=== PATIENT | female | born 1965 | race Caucasian/White ===

== ENCOUNTER 2018-05-12 16:05 | Outpatient (REF) | payer BC, SELFPAY ==
[2018-05-12 18:43] LABS: Abs Immature Grans 0.01 k/cumm (0.0-0.09); Absolute Basophil Count 0.03 k/cumm (0.0-0.2); Absolute Lymphocyte Count 2.15 k/cumm (1.2-3.4); Absolute Monocyte Count 0.51 k/cumm (0.11-0.7); Absolute Neutrophil Count 4.99 k/cumm (1.2-6.7); Basophils % 0.4; Eosinophils % 2.5; HCT 40.2 % (36.0-46.0); HGB 13.2 g/dL (12.0-15.5); Immature Grans % 0.1; Lymphocytes % 27.2; Mean Corp. HGB Concentration 32.8 g/dL (32.0-36.0); Mean Corpuscular Hemoglobin 29.9 pg (27.0-33.0); Mean Platelet Volume 10.1 fL (8.0-11.0); Monocytes % 6.5; Neutrophils % 63.3; Platelet Count 283 x1000/uL (130-400); RBC 4.42 m/cumm (4.00-5.20); RBC Distribution Width 13.5 % (11.7-14.6); White Blood Cell Count 7.89 k/cumm (4.4-10.8)
[2018-05-12 19:03] LABS: Anion Gap 12.5 mmol/L (3-11); BUN 15 mg/dL (7-18); CO2 26.5 mmol/L (21.0-32.0); CREATININE 1.11 mg/dL (0.55-1.02); Calcium 9.3 mg/dL (8.5-10.1); Chloride 101 mmol/L (98-107); Estimated GFR 51.22 (mL/min/1.73m2); Glucose 94 mg/dL (70-100); Potassium 4.1 mmol/L (3.5-5.1); Sodium 140 mmol/L (136-145); TSH 3.42 uIU/mL (0.358-3.74)
== END 2018-05-12 16:06 ==
LOC: NCHCN 16:05
PROVIDERS: PCP Nurse Practitioner Family; Visit Provider Nurse Practitioner Family
DX: F41.0 Panic disorder [episodic paroxysmal anxiety] (principal)
CPT/HCPCS: 80048; 84443; 85025

== ENCOUNTER 2018-12-22 00:26 | Outpatient (CLI) | payer BC, SELFPAY ==
[2018-12-22 08:41] LABS: CREATININE 0.88 mg/dL (0.55-1.02)
--- NOTE | 2018-12-22 09:43 | DI.CT_ITS ---
SYMPTOMS/DIAGNOSIS: LT LOWER QUAD ABD PAIN, R10.[address]: CT examination of the abdomen and pelvis was performed with a bolus infusion of 100 cc's of Omnipaque 350 and ingestion of dilute barium. Images obtained through the lung bases are unremarkable. Note is made of paraesophageal hiatal hernia. The liver and spleen are unremarkable in appearance. The gallbladder has been surgically removed. No biliary dilatation seen. The pancreas is unremarkable in appearance. The abdominal aorta is of normal diameter. No major vascular abnormality is seen. The adrenals and kidneys appear normal. No evidence of urinary tract obstruction or calcification. There is an apparent previous sigmoid anastomosis. No evidence of obstruction. The appendix appears normal. No evidence of diverticulitis. No abdominal or pelvic adenopathy seen. Small fat containing umbilical hernia noted. No other significant abdominal wall hernia seen. CONCLUSION: No evidence of acute intra-abdominal process.
[2018-12-22] MEDS: Omnipaque 350 MG/ML 100 ML BTL IJ (09:44)
[2018-12-22] MEDS: Normal Saline Flush 10 ML SYR IVP (09:45)
[2018-12-22] MEDS: Breeza Beverage 473 ML BTL PO (09:51)
== END 2018-12-22 00:46 ==
PROVIDERS: PCP Nurse Practitioner Family; Visit Provider Nurse Practitioner Family
DX: R10.32 Left lower quadrant pain (principal); K44.9 Diaphragmatic hernia without obstruction or gangrene; Z13.9 Encounter for screening, unspecified
CPT/HCPCS: 36415; 74177; 82565; J3490

== ENCOUNTER 2018-12-29 12:00 | Outpatient (CLI) | payer BC, SELFPAY ==
--- NOTE | 2018-12-29 10:10 | DI.RAD_ITS ---
SYMPTOMS/DIAGNOSIS: WHEEZING, R06.2, SOB, ? PNEUMONIA PA AND LATERAL CHEST: The heart is normal in size. The lungs are clear. The mediastinal structures and pleura appear intact. CONCLUSION: Normal chest. No evidence of acute cardiopulmonary disease.
== END 2018-12-29 12:20 ==
PROVIDERS: PCP Nurse Practitioner Family; Visit Provider Nurse Practitioner Family
DX: R06.2 Wheezing (principal); R06.02 Shortness of breath
CPT/HCPCS: 71046

== ENCOUNTER 2019-07-09 09:22 | Outpatient (REF) | payer BC, SELFPAY ==
[2019-07-09 12:16] LABS: Abs Immature Grans 0.01 k/cumm (0.0-0.09); Absolute Basophil Count 0.04 k/cumm (0.0-0.2); Absolute Eosinophil Count 0.16 k/cumm (0.0-0.7); Absolute Lymphocyte Count 1.94 k/cumm (1.2-3.4); Absolute Monocyte Count 0.41 k/cumm (0.11-0.7); Absolute Neutrophil Count 3.85 k/cumm (1.2-6.7); Basophils % 0.6; Eosinophils % 2.5; HCT 40.5 % (36.0-46.0); HGB 13.3 g/dL (12.0-15.5); Immature Grans % 0.2; Lymphocytes % 30.3; Mean Corp. HGB Concentration 32.8 g/dL (32.0-36.0); Mean Corpuscular Hemoglobin 29.7 pg (27.0-33.0); Mean Corpuscular Volume 90.4 fL (80-95); Monocytes % 6.4; Platelet Count 321 x1000/uL (130-400); RBC 4.48 m/cumm (4.00-5.20); RBC Distribution Width 13.3 % (11.7-14.6); White Blood Cell Count 6.41 k/cumm (4.4-10.8)
[2019-07-09 13:00] LABS: ALT 76 U/L (14-59); AST 41 U/L (15-37); Albumin 4.3 g/dL (3.4-5.0); Alkaline Phosphatase 84 U/L (46-116); BUN 13 mg/dL (7-18); Bilirubin, Total 0.4 mg/dL (0.2-1.0); CREATININE 0.81 mg/dL (0.55-1.02); Calcium 9.4 mg/dL (8.5-10.1); Calculated LDL 145 mg/dL; Chloride 101 mmol/L (98-107); Cholesterol 262 mg/dL (50-200); Glucose 103 mg/dL (70-100); HDL Cholesterol 101 mg/dL (40-60); Potassium 4.4 mmol/L (3.5-5.1); Sodium 140 mmol/L (136-145); TSH (W/Ref FT4) 0.84 uIU/mL (0.36-3.74); Total Protein 7.7 g/dL (6.4-8.2); Triglyceride 80 mg/dL (30-150)
[2019-07-10 18:25] LABS: Tissue Transglutaminase Ab IgA <1.2 U/mL; Tissue Transglutaminase Ab IgG 2.7 U/mL
[2019-07-12 11:59] LABS: IgA 158 mg/dL (85-499)
== END 2019-07-09 09:42 ==
LOC: NCHCN 09:22
PROVIDERS: PCP Nurse Practitioner Family; Visit Provider Nurse Practitioner Family
DX: R19.7 Diarrhea, unspecified (principal); Z00.00 Encounter for general adult medical examination without abnormal findings; Z13.220 Encounter for screening for lipoid disorders
CPT/HCPCS: 80053; 80061; 82784; 83516; 84443; 85025

== ENCOUNTER 2019-07-15 09:49 | Outpatient (REF) | payer BC, SELFPAY ==
[2019-07-15 22:22] LABS: Result Negative; Specimen Description Feces
[2019-07-16 12:08] LABS: Campylobacter PCR SEE COMMENTS; Salmonella PCR SEE COMMENTS; Shiga Toxin PCR SEE COMMENTS; Shigella/Enteroinvasive Ecoli SEE COMMENTS
== END 2019-07-15 10:09 ==
LOC: NCHCN 09:49
PROVIDERS: PCP Nurse Practitioner Family; Visit Provider Nurse Practitioner Family
DX: R19.7 Diarrhea, unspecified (principal)
CPT/HCPCS: 87329; 87505; 83630; 87324; 87798

== ENCOUNTER 2019-09-11 14:53 | Outpatient (REF) | payer BC, SELFPAY | END 2019-09-11 15:13 | LOC: LBN 14:53 | PROVIDERS: PCP Nurse Practitioner Family; Visit Provider Nurse Practitioner Family | DX: R19.7 Diarrhea, unspecified (principal) | CPT/HCPCS: 87324 ==

== ENCOUNTER 2020-07-13 18:49 | Outpatient (REF) | payer BC, SELFPAY ==
[2020-07-13 18:27] LABS: Abs Immature Grans 0.03 10^3/uL (0.0-0.06); Absolute Basophil Count 0.05 10^3/uL (0.0-0.2); Absolute Lymphocyte Count 2.37 10^3/uL (1.2-3.4); Absolute Monocyte Count 0.43 10^3/uL (0.1-0.8); Absolute Neutrophil Count 4.01 10^3/uL (1.2-6.7); Basophils % 0.7; Eosinophils % 2.8; HCT 38.6 % (36.0-46.0); HGB 12.7 g/dL (11.2-15.7); Immature Grans % 0.4; Lymphocytes % 33.4; MCH 29.9 pg (27.0-33.0); MCHC 32.9 % (32.0-36.0); MCV 90.8 fL (80-95); Monocytes % 6.1; Neutrophils % 56.6; Nucleated RBC 0 %; Platelet Count 312 10^3/uL (130-400); RBC 4.25 10^6/uL (3.93-5.22); RDW 12.8 % (11.7-14.6); WBC 7.09 10^3/uL (4.4-10.8)
[2020-07-13 18:28] LABS: ALT 53 U/L (14-59); AST 31 U/L (15-37); Albumin 4.4 g/dL (3.4-5.0); Alkaline Phosphatase 84 U/L (46-116); Anion Gap 10.1 mmol/L (3-11); BUN 9 mg/dL (7-18); Bilirubin, Total 0.4 mg/dL (0.2-1.0); CO2 28.9 mmol/L (21.0-32.0); Calcium 9.2 mg/dL (8.5-10.1); Calculated LDL 189 mg/dL (<100); Chloride 103 mmol/L (98-107); Cholesterol 307 mg/dL (<200); Glucose 81 mg/dL (74-106); HDL Cholesterol 100 mg/dL (40-60); Potassium 4.3 mmol/L (3.5-5.1); Sodium 142 mmol/L (136-145); Total Protein 7.4 g/dL (6.4-8.2); Triglyceride 91 mg/dL (<150)
[2020-07-13 18:30] LABS: Troponin I < 0.05 ng/mL (<0.06)
== END 2020-07-13 19:09 ==
LOC: NCHCN 18:49
PROVIDERS: PCP Nurse Practitioner Family; Visit Provider Nurse Practitioner Family
DX: R07.89 Other chest pain (principal); R73.03 Prediabetes
CPT/HCPCS: 80053; 80061; 84484; 85025; 86140

== ENCOUNTER 2020-08-08 08:26 | Outpatient (CLI) | payer BC, SELFPAY | END 2020-08-08 08:46 | PROVIDERS: PCP Nurse Practitioner Family; Visit Provider Nurse Practitioner Family | DX: I35.0 Nonrheumatic aortic (valve) stenosis (principal); I49.1 Atrial premature depolarization; I49.3 Ventricular premature depolarization | CPT/HCPCS: 93225 ==

== ENCOUNTER 2020-08-10 15:39 | Outpatient (CLI) | payer BC, SELFPAY ==
--- NOTE | 2020-08-15 08:42 | W.HOLTRPT ---
Date of service: 08/15/20 Time of Service: 08:42 Holter Monitor Report Referring Provider:: Jimmy Hernandez Indications:: Aortic stenosis Holter Monitor Note: This is a 48-year Holter monitor Rhythm was sinus with an average heart rate of 77. Minimum heart rate was 59 and maximum 109 Atrial premature beat was seen. There were 15 isolated ventricular ectopic beats There is no atrial fibrillation, pauses greater than 3 seconds or high-grade AV block Patient symptoms corresponded to sinus rhythm without dysrhythmia
== END 2020-08-10 15:59 ==
PROVIDERS: PCP Nurse Practitioner Family; Visit Provider Nurse Practitioner Family
DX: I35.0 Nonrheumatic aortic (valve) stenosis (principal); I49.1 Atrial premature depolarization; I49.3 Ventricular premature depolarization
CPT/HCPCS: 93226

== ENCOUNTER 2020-08-29 00:45 | Outpatient (CLI) | payer BC, SELFPAY ==
--- NOTE | 2020-08-29 10:30 | DI.US_ITS ---
APPROVED REPORT EXAM: Comprehensive 2D, Doppler, and color-flow Echocardiogram Patient Location: Out-Patient Otr Driver: Edwina Duval RDCS (AE) Indications: Chest pain Other Information Study Quality: Adequate Conclusion Normal left ventricular wall thickness and chamber size. Estimated ejection fraction is 65%. There are no segmental wall motion abnormalities Normal right ventricular size and systolic function Both atria are normal in size The aortic valve is sclerotic and trileaflet with trace regurgitation. No aortic stenosis. The tricuspid, mitral, and pulmonic valves are structurally normal There is trace tricuspid, mitral, and pulmonic regurgitation. Right ventricular systolic pressure co uld not be estimated Wall motion Left Ventricle The left ventricle is normal size. The left ventricular systolic function is normal. The left ventric ular ejection fraction is within the normal range. There is normal left ventricular wall thickness. T here is normal LV segmental wall motion. There is no ventricular septal defect visualized. LVEF is 65 %. Right Ventricle The right ventricle is normal size. The right ventricular systolic function is normal. Atria The left atrium size is normal. The right atrium size is normal. The interatrial septum is intact wit h no evidence for an atrial septal defect. Aortic Valve The Aortic valve is sclerotic. Aortic valve is trileaflet. There is no aortic valvular stenosis. Trac e aortic regurgitation. Mitral Valve The mitral valve is normal in structure. No evidence of mitral valve stenosis. Trace mitral regurgita tion. Tricuspid Valve The tricuspid valve is normal in structure. There is no tricuspid valve stenosis. Trace tricuspid reg urgitation. Pulmonic Valve The pulmonary valve is normal in structure. There is no pulmonic valvular stenosis. Trace pulmonic re gurgitation. Great Vessels The aortic root is normal in size. The ascending aorta is normal in size. Aortic arch is normal in ca liber. IVC is normal in size and collapses >50% with inspiration. Pericardium There is no pericardial effusion. 2D Dimensions IVSD d PLAX 0.89 cm F: 0.6-1.0 LV Vol A2C d MOD 61.8 mL LVPW d PLAX 0.95 cm F: 0.6 - 1.0 LV Vol A4C d MOD 57.7 mL LVID d PLAX 3.88 cm F: 3.8 - 5.2 LA vol/ BSA A2C s A-L 26.0 mL/m2 LVDs 2.70 cm F: 2.2 - 3.5 LA vol/ BSA A4C s A-L 19.6 mL/m2 Ao Root d 2.90 cm F: 2.7 - 3.3 LA Vol/ BSA Biplane s A-L 23.5 mL/m2 RA Area A4C 8.60 cm2 LA Area A4C s MOD 14.34 cm2 RA Vol/ BSA A4C s A-L 9.6 mL/m2 LA Area A2C s MOD 17.23 cm2 Ao Asc Diam d 3.10 cm F: 2.3 - 3.1 LV EF A4C MOD 57.9 % LV EF Teichholz 57.8 % LV EF A2C MOD 60.4 % LVEF (Nguyen's) 59.24 % F: 54 - 74 LV EF Biplane MOD 59.2 % LV Volume 48.15 mL F: 46 - 106 SV 35.70 mL LV Volume Index 28.83 mL/m2 F: 29 - 61 SV Index 21.34 mL/m2 LV Vol Biplane MOD 60.3 mL FS 29.90 % M-Mode TAPSE 2.55 cm (M/F) >1.7 LV Diastology MV E' medial 0.106 (>0.07 m/s) E/A Ratio 0.7 LV E/e MED 8.70 (<14) MV E Vmax 0.92 (0.4-1.3 m/s) MV E' lateral 0.075 (>0.1 m/s) MV A Vmax 1.25 (0.4-1.3 m/s) LV E/e LAT 12.30 (<14) MV E/A Ratio 0.72 MV E/E' medial 8.71 MV E/E' lateral 12.30 Aortic Valve LVOT Area 2.73 cm2 AoV Area Vmax 2.21 cm2 LVOT Vmax 1.39 m/s AoV Area/ BSA (Vmax) 1.32 cm2/m2 LVOT Mean Abiel. 0.91 m/s MYNOR Mean Abiel. 2.04 cm2 LVOT Peak Grad 7.7 mmHg MYNOR Mean Abiel. Index 1.22 cm2/m2 LVOT Mean Grad 3.9 mmHg LVOT VTI 0.301 m LVOT Diam s 1.85 cm AoV Vmax 1.71 m/s Velocity Ratio 0.81 AoV Mean Abiel. 1.22 m/s AoV Peak Grad 11.7 mmHg LVOT SV 82.39 mL AoV Mean Grad 6.5 mmHg AoV VTI 0.363 m AoV Area VTI 2.27 cm2 AoV Area/ BSA (VTI) 1.36 cm/m2 Mitral Valve MV DT 203 (160-240 msec) MV PHT 59 msec MV Area PHT 3.74 cm2 Pulmonary Valve PV Vmax 1.29 (0.5-1.5 m/s) RVOT Peak Gr. 2.51 mmHg PV Peak Grad 6.7 mmHg RVOT Mean Gr. 1.20 mmHg PV Mean Grad 4.2 mmHg RVOT VTI 0.116 m PV VTI 0.285 m RVOT Vmax 0.79 m/s
== END 2020-08-29 01:05 ==
PROVIDERS: PCP Nurse Practitioner Family; Visit Provider Nurse Practitioner Family
DX: R07.9 Chest pain, unspecified (principal)
CPT/HCPCS: 93306

== ENCOUNTER 2021-02-18 09:53 | Emergency (ER) | payer BC, SELFPAY ==
--- NOTE | 2021-02-18 10:02 | ED.GENADUL_ITS ---
Discharge Plan Disposition Patient Disposition: HOME Condition: Stable Discharge Details Clinical Impression: Right knee sprain, Effusion of right knee Primary Care Provider: Jayde Eaton ED Provider: Cristy River Home Meds and New Rx's Prescriptions: New naproxen [Naprosyn] 500 mg tablet 500 mg PO BID PRN (Reason: pain) Qty: 14 RF: 0 Continued loperamide 2 MG tablet 2 mg PO PRN RF: 0 omeprazole 20 MG capsule,delayed release(DR/EC) 20 mg PO DAILY RF: 0 budesonide-formoterol [Symbicort] 10.2 GM HFA aerosol inhaler 2 puff Inhalation BID RF: 0 gabapentin 300 MG capsule 300 mg PO HS Qty: 30 RF: 5 fluticasone propionate 16 GM spray,suspension 50 mcg NS DAILY RF: 0 nitroglycerin [Nitrostat] 0.4 mg tablet, sublingual 0.4 mg sublingual Q5-15M PRNRF: 0 hydroxyzine HCl 25 mg tablet 25 mg PO TID PRNRF: 0 buspirone 5 mg tablet 5 mg PO BID RF: 0 amitriptyline 75 MG tablet 75 mg PO HS RF: 0 albuterol sulfate [ProAir HFA] 200 PUFF HFA aerosol inhaler 2 puff IN PRN PRNRF: 0 duloxetine [Cymbalta] 60 MG capsule,delayed release(DR/EC) 60 mg PO HS RF: 0 dicyclomine 10 mg capsule 10 mg PO DAILY RF: 0 Discharge Instructions Instructions: Knee Sprain (ED) Additional Instructions: Rest, ice, and elevate the affected area as much as possible. Your prescription has been sent electronically to your pharmacy. Call the pharmacy to make sure your prescription is ready before pickup. Take the prescription as directed. Follow-up with your primary care doctor in 1 week as needed and for referral to orthopedics if your symptoms do not improve or worsen. Return to the emergency department with any worsening or new concerning symptoms. Stand Alone Forms: Work Release Referrals: Bakari Desir MD [ [facility] STAFF PHYSICIAN] - Discharge Data Discharge Physician: Cristy River Medical Decision Making 55-year-old female presents with right knee pain since yesterday after pulling to carts at the grocery store. Patient appears comfortable and nontoxic. Her right suprapatellar knee appears mild to moderately edematous. There is no evidence of cellulitis or trauma. There is no ligamentous laxity or deformity. She has neurovascular intact. Differential diagnosis includes knee strain, knee effusion, arthritis. X-ray notes arthritis and a joint effusion. Patient was placed in Petey wrap and given crutches. Advised on RICE. Advised to follow-up with orthopedics if symptoms do not improve or worsen. Usual and customary return precautions given prior to discharge. Medical Records Medical records reviewed: Yes I reviewed the patient's medical records. Imaging Data Radiologic Study: Radiologist's impression: XR Right Knee Exam date and time: 02/18/2021 10:21 AM Age: 55 years old Clinical indication: Other: Twisting injury, R/O FX / effusion TECHNIQUE: Imaging protocol: XR Right knee. Views: 4 or more views. COMPARISON: No relevant prior studies available. FINDINGS: Bones/joints: There is no acute fracture or dislocation. There is moderate narrowing of the medial compartment of the tibiofemoral joint. Mild narrowing is noted in the patellofemoral compartment. There are marginal osteophytes and subchondral sclerosis consistent with osteoarthritis. There is mild suprapatellar joint effusion. Soft tissues: Normal. IMPRESSION: 1. No acute fracture or dislocation. 2. Moderate osteoarthritis of the knee. 3. Mild suprapatellar joint effusion. HPI General Mode of arrival: ambulatory . Date/Time Provider Initiated Documentation: 02/18/21 09:55 . Limitations to Documentation: no limitations . Information obtained by: patient . HPI Narrative: Patient is a 55-year-old female presents with right knee pain since yesterday. Patient states she was pulling 2 carts at the grocery store yesterday and developed right knee pain after this but does not recall a specific injury. She states the pain is worse with flexion of her knee and with walking and weightbearing. She took Tylenol last night and this morning with some relief. She denies any fever. Related Data Home Medications Medication Instructions Recorded Confirmed albuterol sulfate [ProAir HFA] 2 puff IN PRN PRN 07/03/17 02/18/21 amitriptyline 75 mg PO HS 07/03/17 02/18/21 duloxetine [Cymbalta] 60 mg PO HS 07/03/17 02/18/21 budesonide-formoterol [Symbicort] 2 puff INHALATION BID inhaler 07/22/17 02/18/21 loperamide 2 mg PO PRN 07/22/17 02/18/21 omeprazole 20 mg PO DAILY tab-cap 07/22/17 02/18/21 gabapentin 300 mg PO HS #30 tab-cap 08/25/17 02/18/21 fluticasone propionate 50 mcg NS DAILY spray 10/06/17 02/18/21 buspirone 5 mg tablet 5 mg PO BID 07/19/20 02/18/21 hydroxyzine HCl 25 mg tablet 25 mg PO TID PRN 07/19/20 02/18/21 nitroglycerin 0.4 mg sublingual 0.4 mg SUBLINGUAL Q5-15M PRN 07/19/20 02/18/21 tablet dicyclomine 10 mg PO DAILY 02/18/21 02/18/21 naproxen [Naprosyn] 500 mg PO BID PRN #14 tab 02/18/21 Previous Rx's Medication Instructions Recorded gabapentin 300 mg PO HS #30 tab-cap 08/25/17 naproxen [Naprosyn] 500 mg PO BID PRN #14 tab 02/18/21 Allergies Allergy/AdvReac Type Severity Reaction Status Date / Time heparin Allergy Unverified 02/18/21 10:11 tramadol Allergy Unverified 02/18/21 10:11 egg AdvReac Unverified 02/18/21 10:11 feathers AdvReac Unverified 02/18/21 10:11 milk AdvReac Unverified 02/18/21 10:11 mold AdvReac Unverified 02/18/21 10:11 pollen extracts AdvReac Unverified 02/18/21 10:11 Review of Systems All systems reviewed & are unremarkable except as noted in HPI and below PFSH Medical History (Updated 02/18/21 @ 11:38 by Cristy River DO) Adjustment disorder Aortic stenosis Chronic diarrhea Depression Esophageal spasm Fatty liver disease, nonalcoholic Fibromyalgia Hypoglycemia Intermittent chest pain Low back pain Mild asthma Mild mitral stenosis AMINA (obstructive sleep apnea) Periodic limb movement disorder Prediabetes Right shoulder pain Seasonal allergies Seizures Surgical History (Updated 07/19/20 @ 09:39 by Arleen Osorio) Hx of breast reduction, elective S/P colectomy Social History Smoking/Tobacco Use Status: Former Tobacco Use Smoking risk assessment performed?: Yes Alcohol Intake: current Alcohol Intake frequency: a few times a week Drug use: Occasionally Substance use type: marijuana Do you feel safe at home: Yes Do you feel safe in your relationship?: Yes Exam Const General: cooperative, healthy appearing and no acute distress HENMT Head: normal to inspection Mouth: oral mucosae normal Eyes General: appearance normal, both eyes and all related structures Neck Neck: normal visual inspection Resp Effort & Inspection: normal respiratory effort and able to speak in complete sentences Cardio Rate: regular rate Skin General skin exam: no rashes or lesions noted Neuro General: patient alert, patient awake and patient oriented x3 Motor: muscle tone normal throughout Extrem Other: Right knee: Anterior knee appears mild to moderately edematous, mostly on suprapatellar and medial aspect. She has pain with valgus stress and flexion. She has no ligamentous instability with no pain with varus stress, negative anterior and posterior drawer test, negative Yvon's test Right DP/PT pulses intact. No evidence of erythema, ecchymosis, crepitus. Psych Appearance: grossly normal Affect: normal affect
[2021-02-18 10:06] VITALS: BP 159/95; PULSE 71; RESP 18; TEMP 36.8; O2SAT 6
--- NOTE | 2021-02-18 10:15 | DI.RAD_ITS ---
Exam(s) XR KNEE RT 4V AP,LAT,ENE,PAT EXAM: XR KNEE RT 4V AP,LAT,ENE,PAT CLINICAL HISTORY: twisting, pulling a cart, r/o fx/effusion TECHNIQUE: COMPARISON: No exams were available for comparison FINDINGS: Four views were obtained. There is a moderate-sized knee joint effusion. The cartilaginous joint sp dwaine of medial tibiofemoral joint and of the lateral aspect of patello femoral joint are narrowed. Th ere are moderate marginal osteophytes involving the joints of the knee. There is no evidence of acute fracture or dislocation. IMPRESSION: Joint effusion without obvious fracture or dislocation. RADIATION DOSE DELIVERED: Total DLP
[2021-02-18] MEDS: Ibuprofen 600 MG TAB PO (10:29)
--- NOTE | 2021-02-18 11:46 | DI.VRAD_ITS ---
Addendum created by Prieto Ingram DO on 02/18/2021 12:06:09 PM EDT: PROCEDURE INFORMATION: Exam: XR Right Knee Exam date and time: 02/18/2021 10:21 AM Clinical indication: Other: Twisting injury, R/O FX / effusion TECHNIQUE: Imaging protocol: XR Right knee. Views: 4 or more views. COMPARISON: No relevant prior studies available. FINDINGS: Bones/joints: The exam is focused on the right knee. Soft tissues: Normal. Other findings: Addendum is made. IMPRESSION: 1. No acute fracture or dislocation. 2. Moderate osteoarthritis of the right knee. 3. Mild suprapatellar joint effusion. Initial report created on 02/18/2021 11:45:36 AM EDT: PROCEDURE INFORMATION: Exam: XR Left Knee Exam date and time: 02/18/2021 10:21 AM Age: 55 years old Clinical indication: Other: Twisting injury, R/O FX / effusion TECHNIQUE: Imaging protocol: XR Left knee. Views: 4 or more views. COMPARISON: No relevant prior studies available. FINDINGS: Bones/joints: There is no acute fracture or dislocation. There is moderate narrowing of the medial compartment of the tibiofemoral joint. Mild narrowing is noted in the patellofemoral compartment. There are marginal osteophytes and subchondral sclerosis consistent with osteoarthritis. There is mild suprapatellar joint effusion. Soft tissues: Normal. IMPRESSION: 1. No acute fracture or dislocation. 2. Moderate osteoarthritis of the knee. 3. Mild suprapatellar joint effusion. Dictated and Authenticated by: Prieto Ingram MD. Ordering:KATALINA Muniz MD
[2021-02-18 12:02] VITALS: BP 161/81; PULSE 71; RESP 20; TEMP 37; O2SAT 99
== END 2021-02-18 12:07 | disposition home or self-care (01) ==
PROVIDERS: Emergency Provider Physician Assistant; PCP Nurse Practitioner Family
DX: S83.8X1A Sprain of other specified parts of right knee, initial encounter (principal); M25.461 Effusion, right knee; X50.9XXA Other and unspecified overexertion or strenuous movements or postures, initial encounter
CPT/HCPCS: 99283; 73564

== ENCOUNTER 2021-09-08 09:39 | Emergency (ER) | payer BC, SELFPAY ==
[2021-09-08] VITALS (26 sets, daily range): BP systolic 110–144; BP diastolic 63–97; PULSE 82–109; RESP 16; TEMP 36.4; O2SAT 69–100
--- NOTE | 2021-09-08 09:59 | ED.GENADUL_ITS ---
Discharge Plan Disposition Patient Disposition: HOME Condition: Improving Discharge Details Clinical Impression: Acute hypokalemia, Hypomagnesemia, Dehydration, Enteritis Primary Care Provider: Jayde Eaton ED Provider: Nixon Bacon Home Meds and New Rx's Prescriptions: Continued loperamide 2 MG tablet 2 mg PO PRN RF: 0 omeprazole 20 MG capsule,delayed release(DR/EC) 20 mg PO DAILY RF: 0 budesonide-formoterol [Symbicort] 10.2 GM HFA aerosol inhaler 2 puff Inhalation BID RF: 0 fluticasone propionate 16 GM spray,suspension 50 mcg NS DAILY RF: 0 nitroglycerin [Nitrostat] 0.4 mg tablet, sublingual 0.4 mg sublingual Q5-15M PRNRF: 0 hydroxyzine HCl 25 mg tablet 25 mg PO TID PRNRF: 0 amitriptyline 75 MG tablet 75 mg PO HS RF: 0 albuterol sulfate [ProAir HFA] 200 PUFF HFA aerosol inhaler 2 puff IN PRN PRNRF: 0 duloxetine [Cymbalta] 60 MG capsule,delayed release(DR/EC) 60 mg PO HS RF: 0 dicyclomine 10 mg capsule 10 mg PO DAILY RF: 0 naproxen [Naprosyn] 500 mg tablet 500 mg PO BID PRN (Reason: pain) Qty: 14 RF: 0 Discharge Instructions Instructions: Dehydration (ED), Hypokalemia (ED), Hypomagnesemia (ED) Additional Instructions: Small, frequent sips of fluids to maintain hydration. Your potassium was slightly low, supplemented in the emergency department as we discussed, and you would benefit from increasing potassium-containing foods in the diet such as bananas, strawberries, tree nuts such as almonds or cashews. Small, frequent to fluids to maintain hydration. Return to the emergency department for any acute concerns. Medical Decision Making 56-year-old female presents from home with her . She reports 9 to 10 days of crampy abdominal pain, plosives 10-15 episodes per day watery diarrhea. She has not had blood in the stool. She was exposed to norovirus at work. Has had malaise and weakness, nausea without vomiting. She rushed to the ER slightly tachycardic, pleasant, with exam that reveals mild abdominal tenderness. 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 There is diagnosis today includes colitis, viral syndrome, dehydration, electrolyte abnormality. Patient IV access established, fluids and antiemetic initiated. Given her complex medical history I do fluid to rule out bowel obstruction or recurrent diverticulitis and patient referred for CT imaging. Labs: Sodium 135, potassium 2.7, chloride 96, by 25, BUN 18, creatinine 1.0, magnesium 1.1, glucose 131, unremarkable LFTs. White blood cell count 12.5, hematocrit 43, platelets 429. Potassium and magnesium supplemented. Patient referred for CT scan which reveals mildly dilated fluid-filled loops of small bowel and colon which may reflect generalized ileus. Patient with significant improvement following fluids and 30 mEq potassium and 2 g magnesium supplementation. She was able to take liquids by mouth HPI General Mode of arrival: ambulatory . Date/Time Provider Initiated Documentation: 09/08/21 09:41 . Limitations to Documentation: no limitations . Information obtained by: patient . History of Present Illness 56 year old F presents to the emergency department with the chief complaint of Diarrhea, weakness, pain, described as moderate, and is localized to the abdomen. Patient started experiencing this day(s) and it has been intermittent. No relieving factors improve symptom(s), No exacerbating factors reported . Patient notes loss of appetite, malaise and weakness; denies chest pain and syncope. Patient did receive the following treatments prior to arrival, none Related Data Home Medications Medication Instructions Recorded Confirmed albuterol sulfate [ProAir HFA] 2 puff IN PRN PRN 07/03/17 09/08/21 amitriptyline 75 mg PO HS 07/03/17 09/08/21 duloxetine [Cymbalta] 60 mg PO HS 07/03/17 09/08/21 budesonide-formoterol [Symbicort] 2 puff INHALATION BID inhaler 07/22/17 09/08/21 loperamide 2 mg PO PRN 07/22/17 09/08/21 omeprazole 20 mg PO DAILY tab-cap 07/22/17 09/08/21 fluticasone propionate 50 mcg NS DAILY spray 10/06/17 09/08/21 hydroxyzine HCl 25 mg tablet 25 mg PO TID PRN 07/19/20 02/18/21 nitroglycerin 0.4 mg sublingual 0.4 mg SUBLINGUAL Q5-15M PRN 07/19/20 09/08/21 tablet dicyclomine 10 mg PO DAILY 02/18/21 09/08/21 naproxen [Naprosyn] 500 mg PO BID PRN #14 tab 02/18/21 09/08/21 Previous Rx's Medication Instructions Recorded naproxen [Naprosyn] 500 mg PO BID PRN #14 tab 02/18/21 Allergies Allergy/AdvReac Type Severity Reaction Status Date / Time heparin Allergy Unverified 09/08/21 09:57 tramadol Allergy Unverified 09/08/21 09:57 egg AdvReac Unverified 09/08/21 09:57 feathers AdvReac Unverified 09/08/21 09:57 milk AdvReac Unverified 09/08/21 09:57 mold AdvReac Unverified 09/08/21 09:57 pollen extracts AdvReac Unverified 09/08/21 09:57 General Stated Complaint: Nausea/Vomit/Diar VAMSHI: 3 Review of Systems Narrative: 7# weight loss, weakness, diarrhea, cramps, malaise. Norovirus at work. 8 systems reviewed and otherwise neg. PFSH All Active Problems (Updated 09/08/21 @ 14:35 by Nixon Bacon MD) Acute hypokalemia (Acute) Hypomagnesemia (Acute) Dehydration (Acute) Enteritis (Acute) Right knee sprain (Acute) Effusion of right knee (Acute) Medical History (Updated 09/08/21 @ 14:35 by Nixon Bacon MD) Adjustment disorder Aortic stenosis Chronic diarrhea Depression Esophageal spasm Fatty liver disease, nonalcoholic Fibromyalgia Hypoglycemia Intermittent chest pain Low back pain Mild asthma Mild mitral stenosis AMINA (obstructive sleep apnea) Periodic limb movement disorder Prediabetes Right shoulder pain Seasonal allergies Seizures Surgical History (Updated 09/08/21 @ 10:16 by Nixon Bacon MD) History of cholecystectomy History of Samir fundoplication History of partial colectomy Hx of breast reduction, elective Social History Smoking/Tobacco Use Status: Former Tobacco Use Smoking risk assessment performed?: Yes Alcohol Intake: current Alcohol Intake frequency: holidays/special occasions only Drug use: Occasionally Substance use type: marijuana Do you feel safe at home: Yes Do you feel safe in your relationship?: Yes Exam Narrative Exam Narrative: GEN: awake, alert, oriented 3. Pleasant, well groomed, interactive. HEAD: Normocephalic, atraumatic ENT: External ear exam unremarkable EYES: PERRL, EOMI NECK: Full ROM, no KACIE, no menigismus CHEST/RESP: Nontender, clear to auscultation bilateral, no wheeze/rhonchi/rales CARDIOVASCULAR: Regular and tachycardic, no murmur, rub griffin. 2+ Rad pulse bilateral ABDOMEN: Soft, increased bowel sounds, tender to palpation lateral and lower bilateral, no mass. +Bowel sounds EXT: Full ROM, no edema, no rash Neuro: Grossly normal neurologic exam, conversant, interactive. Psych: Speech fluent, thoughts congruent, affect normal Course Vital Signs Vital signs: Vital Signs Temperature 36.4 C L 09/08/21 09:50 Pulse 109 H 09/08/21 09:50 Respiratory Rate 16 09/08/21 09:50 Blood Pressure 124/97 H 09/08/21 09:50 Pulse Oximetry 100 09/08/21 09:50 Temperature 36.4 C L 09/08/21 09:50 Temperature Source Skin 09/08/21 09:50 Pulse 109 H 09/08/21 09:50 Respiratory Rate 16 09/08/21 09:50 Respiratory Effort Non-Labored 09/08/21 09:50 Blood Pressure 124/97 H 09/08/21 09:50 Blood Pressure Position Sitting 09/08/21 09:50 Pulse Oximetry 100 09/08/21 09:50 Oxygen Delivery Method Room Air 09/08/21 09:50 Oxygen Flow Rate 0 09/08/21 09:50 Pain Level 5 09/08/21 09:50
[2021-09-08] MEDS: Normal Saline 1,000 ML 1000 ML IV ×2 (10:23→11:08)
[2021-09-08] MEDS: Ondansetron 4 MG/2 ML VIAL IVP (10:23)
[2021-09-08 10:30] LABS: Abs Immature Grans 0.04 10^3/uL (0.0-0.06); Absolute Basophil Count 0.06 10^3/uL (0.0-0.2); Absolute Lymphocyte Count 2.46 10^3/uL (1.2-3.4); Absolute Monocyte Count 0.99 10^3/uL (0.1-0.8); Absolute Neutrophil Count 8.54 10^3/uL (1.2-6.7); Basophils % 0.5; Eosinophils % 3.7; HCT 43.8 % (36.0-46.0); HGB 14.7 g/dL (11.2-15.7); Immature Grans % 0.3; Lymphocytes % 19.6; MCH 29.7 pg (27.0-33.0); MCHC 33.6 % (32.0-36.0); MCV 88.5 fL (80-95); MPV 9.4 fL (8.0-11.0); Monocytes % 7.9; Nucleated RBC 0 %; Platelet Count 429 10^3/uL (130-400); RBC 4.95 10^6/uL (3.93-5.22); RDW 12.4 % (11.7-14.6); RDW-SD 40.4 fL; WBC 12.56 10^3/uL (4.4-10.8)
--- NOTE | 2021-09-08 10:30 | RT.EKG_ITS ---
APPROVED REPORT Exam: Resting ECG Reason for Exam: hypokalemia Patient Location: E HR:89 bpm ECG Measurements Heart Rate 89 AXIS MO 157 P -12 QRSd 81 QRS 17 QT 356 T 230 QTc 434 Conclusion Sinus rhythm...normal P axis, V-rate 60- 99 Low voltage, precordial leads...precordial leads <1.0mV
[2021-09-08 10:31] LABS: Absolute Eosinophil Count 0.46 10^3/uL (0.0-0.7)
[2021-09-08 10:43] LABS: ALT 50 U/L (14-59); AST 26 U/L (15-37); Albumin 4.9 g/dL (3.4-5.0); Alkaline Phosphatase 81 U/L (46-116); Anion Gap 13.9 mmol/L (3-11); BUN 18 mg/dL (7-18); Bilirubin, Total 0.6 mg/dL (0.2-1.0); CO2 25.1 mmol/L (21.0-32.0); Calcium 9.4 mg/dL (8.5-10.1); Chloride 96 mmol/L (98-107); Estimated GFR 57.15 (mL/min/1.73m2); Glucose 131 mg/dL (74-106); Magnesium 1.1 mg/dL (1.8-2.4); Sodium 135 mmol/L (136-145); Total Protein 8.8 g/dL (6.4-8.2)
[2021-09-08 10:44] LABS: Potassium 2.7 mmol/L (3.5-5.1)
[2021-09-08] MEDS: POTASSIUM CHLORIDE 20 MEQ/100 ML BAG 50 MEQ IVPB (11:01)
[2021-09-08] MEDS: MAGNESIUM SULFATE 2 GM/50 ML BAG IVPB (11:06)
[2021-09-08] MEDS: Omnipaque 350 MG/ML 100 ML BTL IJ (11:38)
[2021-09-08] MEDS: Normal Saline Flush 10 ML SYR IVP (11:40)
[2021-09-08 11:47] LABS: Bilirubin Negative (Negative); Blood Negative (Negative); Clarity Clear (Clear); Glucose Negative (Negative); Ketones Negative (Negative); Leukocyte Esterase Negative (Negative); Nitrite Negative (Negative); Specific Gravity >= 1.030 (1.005-1.025); Urobilinogen 0.2 EU/dL (Up TO 0.2); pH 6.5 (5-8)
--- NOTE | 2021-09-08 11:50 | DI.CT_ITS ---
Exam(s) CT ABDOMEN PELVIS W EXAM: CT ABDOMEN PELVIS W CLINICAL HISTORY: Diarrhea, pain, nausea. Complex surgical hx TECHNIQUE: Imaging Protocol: Axial computed tomography images with coronal and sagittal reformatted images were created and reviewed CONTRAST MATERIAL: Intravenous: Omnipaque 350 Contrast volume:100 mL Oral: No COMPARISON: CT CT ABDOMEN PELVIS W from 12/22/2018 FINDINGS: ABDOMEN: Lung Bases: There is a moderate hiatal hernia. Liver: Normal density. No measurable mass. Portal, Superior Mesenteric, and Splenic Veins: Unremarkable. Gallbladder and Biliary Tract: Status post cholecystectomy. No significant biliary ductal dilatation . Pancreas: Normal density, no abnormal calcifications or inflammatory process. Spleen: Normal. Adrenals: No masses seen. Kidneys: Normal size, contour and axis. No radiodense stones or obstructive uropathy. No masses seen. Abdominal Aorta: Abdominal portion non-dilated. Bowel: No bowel wall thickening. Appendix is unremarkable. There are fluid-filled loops of small and large bowel which can be seen with a diarrheal illness. There is an area of narrowing at the anasto mosis in the sigmoid colon. Obstruction cannot be excluded at this level. The colon and small bowel proximal to this area are dilated and fluid-filled. Peritoneal Cavity: No ascites, collection or mesenteric inflammatory response. No free air. Lymph Nodes: Within normal limits. Bones: Within normal limits for the patient's age. Soft Tissues: Unremarkable. PELVIS: Bladder: Symmetric distention, no gross wall thickening. Reproductive Organs: Unremarkable as visualized. Lymph Nodes: Within normal limits. Bones: Within normal limits for the patient's age. IMPRESSION: 1. Fluid filled dilated loops of small and large bowel which may reflect an ileus. An obstruction ca nnot be excluded particularly at the level of the sigmoid anastomosis. RADIATION DOSE DELIVERED: 918.04mGy.cm Total DLP DATA REPOSITORY: All CT scans at this facility are submitted to the National Radiology Data Registry (NRDR) Dose Index Registry (DIR) with the [employer] ([employer]). RADIATION OPTIMIZATION: All CT scans at this facility use at least one of these dose optimization te chniques: automated exposure control; mA and/or kV adjustment per patient size (includes targeted exa ms where dose is matched to clinical indication); or iterative reconstruction.
--- NOTE | 2021-09-08 12:58 | DI.VRAD_ITS ---
PROCEDURE INFORMATION: Exam: CT Abdomen And Pelvis With Contrast Exam date and time: 09/08/2021 10:18 AM Age: 56 years old Clinical indication: Bloating and constipation and other: Diarrhea, pain, nausea. Complex surgical HX; Other: Partial colectomy, [place], [place], 'fistula repair'; Prior surgery; Surgery date: 6+ months TECHNIQUE: Imaging protocol: Computed tomography of the abdomen and pelvis with contrast. Contrast material: OMNIPAQUE 350; Contrast volume: 100 ml; Contrast route: INTRAVENOUS (IV); COMPARISON: CT ABDOMEN PELVIS W 22/12/2018 09:37 FINDINGS: Lungs: Visualized lung bases are clear. Liver: Normal. No mass or intrahepatic biliary ductal dilatation. Gallbladder and bile ducts: Gallbladder has been removed. Pancreas: Normal. No mass or ductal dilation. Spleen: Normal. No splenomegaly. Adrenal glands: Normal. No mass. Kidneys and ureters: Normal. No hydronephrosis, calculus, cyst or mass. Stomach and bowel: There is an anastomotic suture line in the sigmoid colon. The colon proximal to this is fluid filled and there is fluid within distal small bowel loops as well. Proximal small bowel loops are normal. Appendix: No evidence of appendicitis. Intraperitoneal space: Unremarkable. No free air. No significant fluid collection. Vasculature: Unremarkable. No abdominal aortic aneurysm or significant atherosclerosis. Lymph nodes: No enlarged retroperitoneal or mesenteric lymph nodes. Urinary bladder: No mass or wall thickening. Reproductive: Unremarkable as visualized. Bones/joints: Unremarkable. No acute fracture. No lytic lesion. Soft tissues: Unremarkable. IMPRESSION: Mildly dilated fluid-filled loops of small bowel and colon may reflect generalized ileus. There could be a partial obstruction at the level of the sigmoid anastomosis. Dictated and Authenticated by: Nixon Sultana MD. Ordering:YADIRA Alicea MD
[2021-09-08] MEDS: POTASSIUM CHLORIDE 10 MEQ/100 ML BAG 100 MEQ IVPB (13:34)
== END 2021-09-08 14:57 | disposition home or self-care (01) ==
PROVIDERS: Emergency Provider Emergency Medicine; PCP Nurse Practitioner Family
DX: E87.6 Hypokalemia (principal); E83.42 Hypomagnesemia; E86.0 Dehydration; K52.9 Noninfective gastroenteritis and colitis, unspecified; R11.0 Nausea; Z20.828 Contact with and (suspected) exposure to other viral communicable diseases
CPT/HCPCS: 80053; 93005; 96361; 96365; 96366; 96367; 96375; 99285; 74177; 81003; 83735; 85025; 93010; 99284; J2405; J3480; J3490

== ENCOUNTER → 2022-09-11 12:58 | Outpatient (CLI) | payer BC, SELFPAY ==
--- NOTE | 2022-09-11 12:00 | DI.RAD_ITS ---
Exam(s) XR CHEST 2V PA LATERAL EXAM: XR CHEST 2V PA LATERAL CLINICAL HISTORY: RESPIRATORY SYMPTOMS R09.89 TECHNIQUE: 2D digital imaging was performed of the chest. Two images were obtained. PA and lateral views were obtained. COMPARISON: CR XR CHEST 2V PA LATERAL from 12/29/2018 FINDINGS: MEDIASTINUM: Normal. HEART: Normal. PULMONARY VASCULATURE: Normal. LUNGS: Clear. PLEURAL SPACE: No pleural effusion or pneumothorax. BONE:Within normal limits for the patient's age. OTHER FINDINGS:Normal. IMPRESSION: No acute pulmonary findings. DATA REPOSITORY: RADIATION DOSE DELIVERED:
== END ==
PROVIDERS: PCP Nurse Practitioner Family; Visit Provider Nurse Practitioner Family
DX: R09.89 Other specified symptoms and signs involving the circulatory and respiratory systems (principal)
CPT/HCPCS: 71046

== ENCOUNTER 2022-12-10 16:47 | Outpatient (REF) | payer BC, SELFPAY ==
[2022-12-10 16:40] LABS: HCT 39.2 % (36.0-46.0); MCH 29.2 pg (27.0-33.0); MCHC 33.2 % (32.0-36.0); MCV 88 fL (80-95); MPV 9.9 fL (8.0-11.0); Platelet Count 392 10^3/uL (130-400); RBC 4.45 10^6/uL (3.93-5.22); RDW 12.6 % (11.7-14.6); RDW-SD 40.6 fL; WBC 7.71 10^3/uL (4.4-10.8)
[2022-12-10 17:18] LABS: Anion Gap 9.6 mmol/L (3-11); BUN 8 mg/dL (7-18); CO2 31.4 mmol/L (21.0-32.0); CREATININE 0.8 mg/dL (0.55-1.02); Calcium 9.7 mg/dL (8.5-10.1); Calculated LDL 172 mg/dL (<100); Chloride 101 mmol/L (98-107); Cholesterol 287 mg/dL (<200); Estimated GFR 85.35 (mL/min/1.73m2); Glucose 96 mg/dL (74-106); HDL Cholesterol 89 mg/dL (40-60); Potassium 3.9 mmol/L (3.5-5.1); Sodium 142 mmol/L (136-145); Triglyceride 130 mg/dL (<150)
== END 2022-12-10 16:48 | disposition home or self-care (01) ==
LOC: NCHCN 16:47
PROVIDERS: PCP Nurse Practitioner Family; Visit Provider Nurse Practitioner Family
DX: R73.03 Prediabetes (principal); F43.23 Adjustment disorder with mixed anxiety and depressed mood; E78.5 Hyperlipidemia, unspecified; R07.89 Other chest pain
CPT/HCPCS: 80048; 80061; 85027

== ENCOUNTER 2023-11-04 13:27 | Outpatient (CLI) | payer BC, SELFPAY ==
[2023-11-04 14:38] LABS: ALT 31 U/L (14-59); AST 19 U/L (15-37); Albumin 4.5 g/dL (3.4-5.0); Alkaline Phosphatase 69 U/L (46-116); BUN 9 mg/dL (7-18); Bilirubin, Total 0.6 mg/dL (0.2-1.0); Calcium 9.7 mg/dL (8.5-10.1); Calculated LDL 187 mg/dL (<100); Chloride 100 mmol/L (98-107); Cholesterol 312 mg/dL (<200); Glucose 127 mg/dL (74-106); HDL Cholesterol 109 mg/dL (40-60); Potassium 3.2 mmol/L (3.5-5.1); Sodium 138 mmol/L (136-145); Triglyceride 83 mg/dL (<150)
== END 2023-11-04 13:28 | disposition home or self-care (01) ==
LOC: LBO 13:28
PROVIDERS: PCP Nurse Practitioner Family; Visit Provider Nurse Practitioner Family
DX: I10 Essential (primary) hypertension (principal); E78.5 Hyperlipidemia, unspecified
CPT/HCPCS: 36415; 80053; 80061

== ENCOUNTER → 2024-04-29 01:20 | Outpatient (CLI) | payer BC, SELFPAY ==
--- NOTE | 2024-04-29 | ETT_ITS ---
APPROVED REPORT Exam: Exercise Treadmill Patient Location: Out-Patient Room/Bed: Stress Nurse: Susie Saxena RN Ordering Provider:GISEL CASTANEDA, Contact Number: BMI: 29.88 Baseline Rhythm: Sinus Rhythm Indications: Chest pain, SOTELO, Medical History Medical History: AMINA, depression, GERD, HTN Cardiac Medications: Proair, symbicort, losartan-hydrochlorothiazide, omeprazole, venlafaxine, duloxe liat Allergies: NKA Cardiac Risk Factors: Diabetes, HTN, asthma Previous Cardiac Procedures: None Pretest Chest Pain Characteristics: None Exercise History: Indeterminate Physical Disabilities: None Lung Sounds: Clear to auscultation Heart Sounds: Regular Stress Test Details Test: Exercise stress testing was performed using a [place] protocol. Rest Stress HR Resting HR Supine: 72 bpm Max Heart Rate (APMHR): 160 bpm Resting HR Standin bpm Target HR (85% APMHR): 136 bpm Max HR Achieved: 113 bpm % of APMHR: 71 Recovery HR: 82 bpm HR response to stress: Normal HR response to stress BP Resting BP Supine: 134/70 mmHg Resting BP Standin/74 mmHg Max BP: 144/70 mmHg Recovery BP: 120/68 mmHg BP response to stress: Normal blood pressure response to stress. ECG Resting ECG: Sinus Rhythm Ectopy: None Stress ECG: Sinus Tachycardia ST Change: No significant ST segment changes noted Arrhythmia: None Recovery ECG: Sinus Rhythm Recovery ST Change: No significant ST segment changes noted Recovery Arrhythmia: None Clinical Reason for Termination: Fatigue Stress Symptoms: General Fatigue Exercise duration: 06 min04 sec Highest Stage Reached: Stage 2: 2.5 mph at 12% grade. Exercise capacity: 7.14 METs Angina Score: None Desouza Treadmill Score: 5.7 Rate Pressure Product: [id number] Stress ECG Conclusion 1. Resting electrocardiogram showed low voltage 2. Patient exercised on the [place] protocol completed a workload of 7.14 METS limited by fatigue 3. Normal heart rate and blood pressure response to exercise. Patient achieved 71% of maximal predic evans heart rate for age 4. At that heart rate and workload achieved, there was no electrocardiographic evidence of myocardial ischemia though technically the test was nondiagnostic due to inadequate heart rate 5. There were no significant dysrhythmias Desouza Treadmill Score is 5.7 which is Low risk. Stress Test Summary STAGE Time (mins) Speed (mph) Grade (%) HR BP SpO2 SYMPTOMS METS Supine 96 134/70 98 Standing 75 120/74 1 3 1.7 10 96 138/70 4.5 2 6 2.5 12 112 150/78 General fatigue 7 1 min recovery 103 144/70 98 3 min recovery 89 132/74 99 6 min recovery 82 120/68 98
== END ==
PROVIDERS: PCP Nurse Practitioner Family; Visit Provider Nurse Practitioner Family
DX: R07.89 Other chest pain (principal); R06.09 Other forms of dyspnea
CPT/HCPCS: 93017